=== PATIENT | male | born 1985 | race American Indian/Alaskan Native ===

== ENCOUNTER 2017-08-14 22:40 | Emergency (ER) | payer SELFPAY ==
[2017-08-14 23:16] LABS: Hematocrit 40.9 % (35.5-45.6); Mean Corpuscular Hemoglobin 31 pg (28-32); Mean Corpuscular Volume 92 fl (84-94); Red Blood Count 4.46 M/mm3 (3.65-5.03)
[2017-08-14 23:17] LABS: Basophils % (Auto) 0.6 % (0.0-1.8); Eosinophils # (Auto) 0.1 K/mm3 (0.0-0.4); Eosinophils % (Auto) 1.7 % (0.0-4.3); Lymphocytes # (Auto) 1.9 K/mm3 (1.2-5.4); Lymphocytes % (Auto) 30.8 % (13.4-35.0); Mean Corpuscular HGB Conc 34 % (32-34); Monocytes # (Auto) 0.3 K/mm3 (0.0-0.8); Monocytes % (Auto) 5.5 % (0.0-7.3); Platelet Count 172 K/mm3 (140-440); Red Cell Distribution Width 15.5 % (13.2-15.2)
[2017-08-14 23:23] LABS: Alanine Aminotransferase 15 units/L (7-56); Albumin 4.5 g/dL (3.9-5); BUN/Creatinine Ratio 18; Blood Urea Nitrogen 22 mg/dL (9-20); Calcium 9.5 mg/dL (8.4-10.2); Hemolysis Index 8; Lipase 26 units/L (13-60)
[2017-08-14 23:58] LABS: Bilirubin,Urine NEG (Negative); Blood,Urine NEG (Negative); Color,Urine Yellow (Yellow); Hyaline Casts,Urine 1 /LPF; Mucus,Urine 2+ /HPF; Protein,Urine <15 mg/dL mg/dL (Negative); WBC,Urine < 1.0 /HPF (0.0-6.0)
[2017-08-15] MEDS ORDERED: MOTRIN PO ONE (00:09)
[2017-08-15] MEDS ORDERED: PERCOCET 5/325 PO ONE (00:09)
[2017-08-15] MEDS ORDERED: ZOFRAN ODT PO ONE (00:09)
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
[2017-08-15 00:14] LABS: Amphetamine Screen,Urine PRESUMPTIVE NEGATIVE; Benzodiazepines Screen,Urine PRESUMPTIVE NEGATIVE; Cannabinoid Screen,Urine PRESUMPTIVE NEGATIVE; Cocaine Screen,Urine PRESUMPTIVE NEGATIVE; Methadone Screen,Urine PRESUMPTIVE NEGATIVE; Opiate Screen,Urine PRESUMPTIVE NEGATIVE
--- NOTE | 2017-08-15 03:07 | Cat Scan Report ---
FINAL REPORT PROCEDURE: CT ABDOMEN PELVIS W CON TECHNIQUE: Computerized axial tomography of the abdomen and pelvis was performed after the IV injection of iodinated nonionic contrast. HISTORY: right lower quadrant pain COMPARISON: No prior studies are available for comparison. FINDINGS: Visualized lower thorax: No significant abnormality. Liver: Normal size and attenuation. Spleen: Normal size and attenuation. Gallbladder and biliary system: Normal. Pancreas: Normal. Adrenals: Normal. Kidneys: Both kidneys have a normal size. No hydronephrosis. No renal stones or masses.. GI tract: There is no evidence of intestinal obstruction. No ileus or enteritis. The cecum, appendix and colon are normal.. Lymph nodes and mesentery: Normal. Vasculature: Normal. Bladder: Normal. Reproductive organs: Normal. Peritoneum: No free fluid. Musculoskeletal structures: There is a metallic foreign density identified in the right the lateral L2 vertebral body. The remaining osseous structures are appropriate for age.. Other: None. IMPRESSION: There is no evidence of intestinal or urinary tract obstruction. No ileus or enteritis.
[2017-08-15 03:59] VITALS: BP 123/74
== END 2017-08-15 04:09 | disposition home or self-care (01) ==
LOC: ED 22:40
DX: R10.31 Right lower quadrant pain (principal); Z79.899 Other long term (current) drug therapy
CPT/HCPCS: 36415; 74177; 80053; 80307; 81001; 83690; 85025; 99284; G0480; Q9967; 80320; Q0162